=== PATIENT | male | born 1940 | race Asian ===

== ENCOUNTER 2022-03-03 20:31 | Emergency (ER) | payer OTHER ==
[~2022-03-03] VITALS: Ht 162.6 cm; Wt 78.0 kg
[2022-03-03 21:15] LABS: BASOPHILS % (AUTO) 0.4 % (0.0-2.0); EOSINOPHILS % (AUTO) 6.9 % (1.0-6.0); HEMATOCRIT 25.1 % (41-53); HEMOGLOBIN 8.4 g/dL (13.5-17.5); LYMPHOCYTES # (AUTO) 2.7 K/uL (1.0-4.8); LYMPHOCYTES % (AUTO) 29.4 % (22.0-44.0); MEAN CORPUSCULAR HEMOGLOBIN 32.9 pg (26.0-34.0); MEAN CORPUSCULAR HGB CONC 33.4 G/dL (31.0-37.0); MEAN CORPUSCULAR VOLUME 99 fL (80-100); MONOCYTES # (AUTO) 1.1 K/uL (0.1-1.0); MONOCYTES % (AUTO) 11.8 % (2.0-9.0); NEUTROPHILS # (AUTO) 4.7 K/uL (1.8-7.7); NEUTROPHILS % (AUTO) 51.5 % (40.0-70.0); PLATELET COUNT (AUTO) 221 K/uL (150-450); RED BLOOD CELL COUNT(AUTO) 2.54 MIL/uL (4.50-5.90)
[2022-03-03 21:25] LABS: INR 2.1 (0.9-1.1); PROTHROMBIN TIME 21.4 SEC (9.4-11.6)
[2022-03-03] MEDS ORDERED: WARF5TAB40 PO (21:29)
[2022-03-03] MEDS ORDERED: FINA5TAB41 PO (21:29)
[2022-03-03] MEDS ORDERED: ATOR40TA71 PO (21:29)
[2022-03-03] MEDS ORDERED: INSULIN HUMULIN R SQ (21:29)
[2022-03-03 21:32] LABS: CALCIUM, TOTAL 8.4 mg/dL (8.8-10.5); CREATININE 3.17 mg/dL (0.60-1.30); POTASSIUM 4.1 mmol/L (3.5-5.1)
[2022-03-03 21:37] LABS: ALBUMIN 3.4 g/dL (3.4-5.0); BILIRUBIN,TOTAL 0.6 mg/dL (0.1-1.0); TOTAL PROTEIN, SERUM 7.4 g/dL (6.4-8.2)
[2022-03-03] MEDS ORDERED: DILTIAZEM HCL 5 MG/ML 5 ML VIAL IVP ONE (22:15)
[2022-03-03] MEDS ORDERED: DIGOXIN 250 MCG/ML 2 ML AMP IVP ONE (22:15)
[2022-03-03 22:49] LABS: COVID AG,FIA SOURCE NASOPHARYNGEAL
[2022-03-04 01:45] VITALS: BP 134/68
== END 2022-03-04 02:00 | disposition short-term general hospital (02) ==
LOC: EMS 20:31
DX: R41.82 Altered mental status, unspecified (principal); I48.20 Chronic atrial fibrillation, unspecified; R42 Dizziness and giddiness; N17.9 Acute kidney failure, unspecified; D64.9 Anemia, unspecified; Z20.822 Contact with and (suspected) exposure to COVID-19
CPT/HCPCS: 36415; 70450; 71045; 80053; 82948; 84484; 85025; 85610; 86850; 86900; 86901; 87426; 93005; 96374; 96375; 99291; J1160; J3490